=== PATIENT | female | born 1980 | race Caucasian/White ===

== ENCOUNTER → 2017-04-30 09:45 | Outpatient (CLI) | payer MEDICAID ==
[2017-04-30 10:10] LABS: BASOPHILS 0.3 % (0-2); HEMATOCRIT 40.9 % (36.0-48.0); HEMOGLOBIN 13.1 g/dL (12-16); IMMATURE GRANULOCYTES 1.1 % (0-5); LYMPHOCYTES 41.5 % (15-50); MCH 30.4 pg (26.0-34.0); MCV 94.9 fL (80.0-100.0); MEAN PLATELET VOLUME 9.6 fL (7.4-10.4); NEUTROPHILS 47.1 % (40-80); PLATELET COUNT 164 10x3/uL (130-400); RBC 4.31 10x6/uL (4.00-5.40); RDW 13.8 % (11.5-14.5); WBC 6.6 10x3/uL (4.8-10.8)
[2017-04-30 10:37] LABS: ALBUMIN 3.7 g/dL (3.4-5.0); ANION GAP 7.4 mmol/L (8-16); BILIRUBIN - TOTAL 0.1 mg/dL (0.2-1.3); CALCIUM 8.9 mg/dL (8.5-10.1); CARBON DIOXIDE 30.8 mmol/L (21.0-32.0); CREATININE - SERUM 1.1 mg/dL (0.6-1.3); POTASSIUM - SERUM 4.2 mmol/L (3.5-5.1); PROTEIN - SERUM 7.1 g/dL (6.4-8.2); THYROID STIMULATING HORMONE 4.61 uIU/mL (0.36-3.74); VALPROIC ACID (DEPAKOTE) 39.6 ug/mL (50.0-100.0)
[2017-04-30 10:54] LABS: BILIRUBIN - INDIRECT 0.1 mg/dL (0.00-1.00)
== END | disposition home or self-care (01) ==
LOC: D.LAB 09:45
PROVIDERS: Psychiatry & Neurology Psychiatry
DX: Z51.81 Encounter for therapeutic drug level monitoring (principal); Z79.899 Other long term (current) drug therapy